=== PATIENT | male | born 1960 | race Hispanic/Latino ===

== ENCOUNTER 2017-06-04 18:21 | Inpatient (IN) | payer MEDICAID, OTHER ==
[2017-06-04] MEDS ORDERED: Sodium Chloride 0.9% 1,000 ML IV STA (18:42)
--- NOTE | 2017-06-04 18:55 | ED PDOC ---
HPI: Chest Pain Time Seen by Provider: 06/04/17 18:33 Chief Complaint (Nursing): Chest Pain Chief Complaint (Provider): Chest Pain History Per: Patient History/Exam Limitations: no limitations Onset/Duration Of Symptoms: Mins (prior to arrival) Current Symptoms Are (Timing): Still Present Additional Complaint(s): Bipin Neri is a 57 year old male with previous medical history of COPD, CVA, stomach ulcer, herniated disk and arthritis, who presents to the emergency department for an evaluation of left-sided chest pain associated with shakiness , lightheadedness, shortness of breath, nausea, vomiting, runny nose, loss of appetite and generalized weakness while at a [place] festival prior to arrival. Denied abdominal pain, diarrhea, headache, visual change, cough, congestion, head injury, numbness or tingling. No new food or drink. Drinks occ alcohol. PMD: Herrera Cvoington MD Past Medical History Reviewed: Historical Data, Nursing Documentation, Vital Signs Vital Signs: Last Vital Signs Temp 97.4 F L 06/04/17 18:33 Pulse 109 H 06/04/17 19:30 Resp 16 06/04/17 19:30 BP 150/102 H 06/04/17 19:30 Pulse Ox 94 L 06/04/17 19:30 - Medical History PMH: Back Problems, COPD, Depression, Emphysema, Fractures (L ankle), HTN, Hypercholesterolemia, Hyperlipidemia, Pneumonia (10 yrs ago), Chronic Pain - Family History Family History: States: Unknown Family Hx - Social History Current smoker - smoking cessation education provided: No Ex-Smoker (has not smoked in the last 12 months): Yes Alcohol: Occasional Drugs: Denies - Immunization History Hx Tetanus Toxoid Vaccination: Yes Hx Influenza Vaccination: Yes Hx Pneumococcal Vaccination: Yes - Home Medications Home Medications: Ambulatory Orders Medication Instructions Recorded Amitriptyline [Elavil] 25 mg PO HS 10/25/16 Aspirin [Dickson Aspirin] 81 mg PO DAILY 10/25/16 Cyclobenzaprine [Flexeril] 5 mg PO TID PRN 10/25/16 DULoxetine [Cymbalta] 60 mg PO DAILY 10/25/16 Famotidine [Pepcid] 20 mg PO DAILY 10/25/16 Gabapentin [Neurontin] 800 mg PO TID 10/25/16 Walker [Rolling Walker] 1 dev XX PRN PRN #1 dev 11/16/16 Fluticasone/Vilanterol [Breo 1 puff INH DAILY 06/04/17 Ellipta 100-25 Mcg INH] - Allergies Allergies/Adverse Reactions: Allergies Allergy/AdvReac Type Severity Reaction Status Date / Time oxycodone HCl [From Percocet] Allergy Verified 11/17/16 01:27 Review of Systems ROS Statement: Except As Marked, All Systems Reviewed And Found Negative Constitutional: Negative for: Other (head injury) Eyes: Negative for: Vision Change ENT: Negative for: Nose Congestion Cardiovascular: Positive for: Chest Pain Respiratory: Positive for: Shortness of Breath. Negative for: Cough Gastrointestinal: Positive for: Nausea, Vomiting, Other (loss of appetite). Negative for: Abdominal Pain, Diarrhea Neurological: Positive for: Weakness (generalized), Dizziness (lightheadedness) , Other (shakiness). Negative for: Numbness (or tingling), Incoordination, Headache Physical Exam - Reviewed Nursing Documentation Reviewed: Yes Vital Signs Reviewed: Yes - Physical Exam Appears: Positive for: Uncomfortable Head Exam: Positive for: ATRAUMATIC, NORMAL INSPECTION, NORMOCEPHALIC Skin: Positive for: Normal Color, Warm Eye Exam: Positive for: Normal appearance, EOMI, PERRL. Negative for: Nystagmus ENT: Positive for: Normal ENT Inspection. Negative for: Pharyngeal Erythema, Tonsillar Exudate Neck: Positive for: Normal, Painless ROM, Supple Cardiovascular/Chest: Positive for: Tachycardia, Other (left chest tenderness). Negative for: Regular Rate, Rhythm, Chest Non Tender Respiratory: Negative for: Normal Breath Sounds, Decreased Breath Sounds, Accessory Muscle Use, Crackles, Rales, Rhonchi, Wheezing, Respiratory Distress Gastrointestinal/Abdominal: Positive for: Bowel Sounds, Soft, Tenderness ( epigastric). Negative for: Normal Exam, Other (ecchymosis) Back: Positive for: Normal Inspection. Negative for: L CVA Tenderness, R CVA Tenderness Extremity: Positive for: Normal ROM. Negative for: Tenderness, Pedal Edema, Deformity Neurologic/Psych: Positive for: Alert, pharmacovigilance specialist II-XII (intact), Oriented (x3). Negative for: Motor/Sensory Deficits - Laboratory Results Result Diagrams: 06/04/17 19:30 06/04/17 20:20 Interpretation Of Abn Labs: elevated liver enzymes; 2.8 lactate - ECG ECG: Positive for: Interpreted By Me, Viewed By Me ECG Rhythm: Positive for: Sinus Tachycardia O2 Sat by Pulse Oximetry: 98 (RA) Pulse Ox Interpretation: Normal - Radiology X-Ray: Interpreted by Me X-Ray Interpretation: No Acute Disease - CT Scan/US US Other Rad Studies (CT/US): Radiology Report Reviewed Other Rad Interpretation: no acute - Progress ED Course And Treament: 2309: Dr. Covington paged multiple times with no response. Spoke with Dr. Cook who will admit and give further orders when pt. reaches floor. Stable. Chest pain free. AAOx3. Medical Decision Making Medical Decision Making: Initial Impression: Chest pain Initial Plan: * VBG * EKG * Alcohol serum * BNP * CMP * Drug screen, urine * Lipase * Troponin I * Urine dip * CBC * PTT * PT * CXR * Morphine 4mg IV * NS 1,000ml IV per 1,000mls/hr * Zofran 4mg IV * Accucheck Time: 1907 --EKG: sinus tachycardia at 113 BMP. --Per chart, patient has allergy to Oxycodone. Upon further questioning, patient stated that he gets "jittery" and has vomiting reaction but does not report rash, hives or trouble breathing. --Patient is willing to try Morphine for pain relief. Stated that he has had it in the past with no issues. Scribe Attestation: Documented by Namiat Sinha, acting as a scribe for Jim Gooden MD. Provider Scribe Attestation: All medical record entries made by the Scribe were at my direction and personally dictated by me. I have reviewed the chart and agree that the record accurately reflects my personal performance of the history, physical exam, medical decision making, and the department course for this patient. I have also personally directed, reviewed, and agree with the discharge instructions and disposition. Disposition - Clinical Impression Clinical Impression: Chest pain, Vomiting - Patient ED Disposition Is Patient to be Admitted: Yes Counseled Patient/Family Regarding: Studies Performed, Diagnosis - Disposition Disposition Time: 22:13 Condition: FAIR - Pt Status Changed To: Hospital Disposition Of: Inpatient - Admit Certification Admit to Inpatient:: After my assessment, the patient will require hospitalization for at least two midnights. This is because of the severity of symptoms shown, intensity of services needed, and/or the medical risk in this patient being treated as an outpatient. - POA Present On Arrival: None
[2017-06-04 19:34] LABS: ALB/GLOB RATIO 1.4 (1.0-2.1); ALCOHOL SERUM < 10 mg/dl (0-10); ALKALINE PHOSPHATASE 80 U/L (38-126); ALT/SGPT 122 U/L (21-72); AST/SGOT 158 U/L (17-59); BILIRUBIN,TOTAL 1.9 mg/dl (0.2-1.3); BLOOD UREA NITROGEN 11 mg/dl (9-20); CALCIUM 9.9 mg/dL (8.4-10.2); CARBON DIOXIDE 22 mmol/L (22-30); CHLORIDE 99 mmol/L (98-107); GFR AFRICAN-AMERICAN > 60; GLUCOSE,RANDOM 99 mg/dL (75-110); LIPASE 208 U/L (23-300); SODIUM 134 mmol/l (132-148); TOTAL PROTEIN 8.3 G/DL (6.3-8.2)
[2017-06-04 19:42] LABS: POTASSIUM 5.6 MMOL/L (3.6-5.0)
[2017-06-04 19:53] LABS: PARTIAL THROMBOPLASTIN TIME 28.8 Seconds (25.6-37.1)
[2017-06-04 20:08] LABS: BASO # 0.1 K/uL (0.0-0.2); BASO % 1.5 % (0.0-2.0); EOS # 0.2 K/uL (0.0-0.7); EOS % 1.6 % (0.0-4.0); HEMATOCRIT 45.2 % (35.0-51.0); LYMPH # 1.6 K/uL (1.0-4.3); LYMPH % 15.9 % (20.0-40.0); MEAN CELL VOLUME 99.7 fl (80.0-94.0); MEAN CORPUSCULAR HEMOGLOBIN 35.6 pg (27.0-31.0); MEAN CORPUSCULAR HGB CONC 35.7 g/dL (33.0-37.0); MEAN PLATELET VOLUME 9.7 fl (7.2-11.7); MONO # 0.5 K/uL (0.0-0.8); MONO % 5.4 % (0.0-10.0); NEUT # 7.7 K/uL (1.8-7.0); NEUT % 75.6 % (50.0-75.0); NRBC % 0.2 % (0.0-0.0); WHITE BLOOD COUNT 10.1 K/uL (4.8-10.8)
--- NOTE | 2017-06-04 22:27 | US ---
EXAM: US Abdomen Limited, Right Upper Quadrant EXAM DATE/TIME: 06/04/2017 7:52 PM CLINICAL HISTORY: 57 years old, male; Pain; Abdominal pain; Generalized; Additional info: Eval gb; Epigastric pain TECHNIQUE: Real-time ultrasound of the right upper quadrant with image documentation. COMPARISON: No relevant prior studies available. FINDINGS: There is a negative sonographic Hills's sign per remote sensing technologist. No gallstones. No pericholecystic fluid. The gallbladder wall does not appear thickened although there are no actual measurements submitted. The common bile duct measures 4 mm which is within normal limits. The liver is increased in echogenicity consistent with fatty infiltration. The pancreas is normal. No right hydronephrosis. The right kidney measures 11 cm in length. IMPRESSION: No acute findings.
[2017-06-04 22:34] LABS: VENOUS BLOOD GAS BASE EXCESS 1.3 mmol/L (0.0-2.0); VENOUS BLOOD GAS PCO2 40 mmHg (40-60); VENOUS BLOOD PH 7.42 (7.32-7.43)
[2017-06-04 22:42] LABS: VENOUS BLOOD GAS BASE EXCESS 1.3 mmol/L (0.0-2.0); VENOUS BLOOD GAS PCO2 40 mmHg (40-60); VENOUS BLOOD PH 7.42 (7.32-7.43)
[2017-06-05] MEDS: Dextrose 5%/0.9% NS 1,000 ML IV SCH ×2 (03:40→23:33)
[2017-06-05 07:40] LABS: HEMATOCRIT 42.8 % (35.0-51.0); MEAN CORPUSCULAR HEMOGLOBIN 34.6 pg (27.0-31.0); MEAN CORPUSCULAR HGB CONC 34.3 g/dL (33.0-37.0); RED CELL DISTRIBUTION WIDTH 13.8 % (11.5-14.5); WHITE BLOOD COUNT 5.8 K/uL (4.8-10.8)
[2017-06-05 08:13] LABS: ALB/GLOB RATIO 1.4 (1.0-2.1); ALKALINE PHOSPHATASE 60 U/L (38-126); ALT/SGPT 100 U/L (21-72); AST/SGOT 101 U/L (17-59); BILIRUBIN,TOTAL 1.3 mg/dl (0.2-1.3); BLOOD UREA NITROGEN 8 mg/dl (9-20); CALCIUM 8.7 mg/dL (8.4-10.2); CARBON DIOXIDE 29 mmol/L (22-30); CHLORIDE 99 mmol/L (98-107); GFR AFRICAN-AMERICAN > 60; GLUCOSE,RANDOM 134 mg/dL (75-110); POTASSIUM 3.3 MMOL/L (3.6-5.0); SODIUM 136 mmol/l (132-148); TOTAL PROTEIN 6.6 G/DL (6.3-8.2)
[2017-06-05] MEDS: Fluticasone-Salmeterol 100-50mcg Diskus IH SCH ×2 (08:31→21:22)
[2017-06-05] MEDS: Pantoprazole 40 mg EC Tab PO SCH (08:33)
[2017-06-05 08:36] LABS: THYROID STIMULATING HORMONE 3.26 mIU/ML (0.46-4.68)
[2017-06-05] MEDS ORDERED: Patient's Own Med (Gabapentin [Neurontin] 800 MG) PO SCH (09:00)
[2017-06-05] MEDS ORDERED: Patient's Own Med (Fluticasone/Vilanterol [Breo Ellipta 100-25 Mcg Inh] 1 PUFF) INH SCH (09:00)
--- NOTE | 2017-06-05 09:22 | RAD ---
HISTORY: Dyspnea. Portable study 19:18. COMPARISON: 07/02/2011 FINDINGS: LUNGS: No active pulmonary disease. PLEURA: Unremarkable CARDIOVASCULAR: No radiographic findings to suggest acute or significant cardiovascular disease. OSSEOUS STRUCTURES: No significant abnormalities. VISUALIZED UPPER ABDOMEN: Normal. OTHER FINDINGS: None. IMPRESSION: No active disease. No significant interval change compared to the prior examination(s).
--- NOTE | 2017-06-05 21:43 | CP.PCM.HP ---
History of Present Illness - History of Present Illness History of Present Illness: A 57 yr old male with hx of COPD, Chronic smoker and back pain due to disc disease ,drinks alchol daily came to ER as he felt chest pain for few sec and getting shakY as per him he had one drink on day prior to admission.notes he does not do binge drinking. found to be with elevated LFTS , LOW PLATELTS. Present on Admission - Present on Admission Any Indicators Present on Admission: No Review of Systems - Hematologic/Lymphatic Additional comments: - Constitutional Constitutional: Fatigue, no Lethargy, no Weight Loss. absent: Chills, Fever, Headache, Night Sweats - EENT Nose/Mouth/Throat: absent: Sore Throat, Facial Pain - Cardiovascular Cardiovascular: absent: Chest Pain, Dyspnea, Edema, Orthopnea, Rapid Heart Rate - Respiratory Respiratory: absent: Wheezing, Chest Congestion, Excessive Mucous Production - Gastrointestinal Gastrointestinal: Nausea. absent: Belching, Bloating, Constipation, Diarrhea, Dyspepsia - Genitourinary Genitourinary: Hematuria. absent: Flank Pain, Urinary Frequency - Musculoskeletal Musculoskeletal: Arthralgias, Limited Range of Motion. c\o Back Pain - Hematologic/Lymphatic Hematologic: absent: Easy Bleeding, Lymphadenopathy Past Patient History - Infectious Disease Hx of Infectious Diseases: None - Past Medical History & Family History Past Medical History?: Yes - Past Social History Smoking Status: Light Smoker < 10 Cigarettes Daily - CARDIAC Hx Cardiac Disorders: Yes Hx Hypercholesterolemia: Yes Hx Hypertension: Yes - PULMONARY Hx Chronic Obstructive Pulmonary Disease (COPD): Yes Hx Emphysema: Yes Hx Pneumonia: Yes (10 yrs ago) - NEUROLOGICAL Hx Neurological Disorder: Yes HX Cerebrovascular Accident: Yes (with TPA 12/2015) - HEENT Hx HEENT Problems: No - RENAL Hx Chronic Kidney Disease: No - ENDOCRINE/METABOLIC Hx Endocrine Disorders: No - HEMATOLOGICAL/ONCOLOGICAL Hx Blood Disorders: No - INTEGUMENTARY Hx Dermatological Problems: No - MUSCULOSKELETAL/RHEUMATOLOGICAL Hx Falls: Yes - GASTROINTESTINAL Hx Gastrointestinal Disorders: Yes Hx Gastroesophageal Reflux: Yes - GENITOURINARY/GYNECOLOGICAL Hx Genitourinary Disorders: No - PSYCHIATRIC Hx Depression: Yes Hx Substance Use: No - SURGICAL HISTORY Hx Surgeries: Yes Hx Open Reduction Internal Fixation: Yes (left ankle) Other/Comment: cyst from under left ear and neck,BX OF VOCAL CORD - ANESTHESIA Hx Anesthesia: Yes Hx Anesthesia Reactions: No Hx Malignant Hyperthermia: No Meds Home Medications: Home Medication List Medication Instructions Recorded Confirmed Type Albuterol/Ipratropium [Duoneb 3 3 ml INH RTID #60 06/08/17 Rx mg/0.5 mg (3 ml) UD] Azithromycin [Zithromax] 500 mg PO DAILY #5 tablet 06/08/17 Rx Fluticasone/Salmeterol 100/50 1 puff IH Q12 #1 puff 06/08/17 Rx [Advair Diskus 100/50] Folic Acid 1 mg PO DAILY #30 tab 06/08/17 Rx Gabapentin [Neurontin] 800 mg PO TID #60 cap 06/08/17 Rx Methylprednisolone [Medrol Dose 4 mg PO DAILY #21 mg 06/08/17 Rx Pack (21 tabs)] Metoprolol Tartrate [Lopressor] 25 mg PO BID #60 tab 06/08/17 Rx Pantoprazole [Protonix EC Tab] 40 mg PO DAILY #30 ect 06/08/17 Rx Thiamine [Vitamin B1 Tab] 100 mg PO DAILY #30 tab 06/08/17 Rx Allergies/Adverse Reactions: Allergies Allergy/AdvReac Type Severity Reaction Status Date / Time oxycodone HCl [From Percocet] Allergy Verified 11/17/16 01:27 Physical Exam - Additional Findings Additional findings: - Constitutional Appears: No Acute Distress - Head Exam Head Exam: ATRAUMATIC, NORMAL INSPECTION - Eye Exam Eye Exam: EOMI, Normal appearance, PERRL - ENT Exam ENT Exam: Normal Exam - Neck Exam Neck exam: Positive for: Normal Inspection. Negative for: Thyromegaly - Respiratory Exam Respiratory Exam: Clear to Auscultation Bilateral, NORMAL BREATHING PATTERN - Cardiovascular Exam Cardiovascular Exam: REGULAR RHYTHM, +S1, +S2, Systolic Murmur - GI/Abdominal Exam GI & Abdominal Exam: Normal Bowel Sounds, Soft. absent: Distended, Organomegaly , TenderneSS - Extremities Exam Extremities exam: Positive for: full ROM, pedal pulses present, B\L hand tremmors - Back Exam Back exam: NORMAL INSPECTION. absent: paraspinal tenderness - Neurological Exam Neurological exam: Alert, CN II-XII Intact, Normal Gait, Oriented x3 - Psychiatric Exam Psychiatric exam: Anxious - Skin Skin Exam: Intact, Normal Color Results - Vital Signs Recent Vital Signs: Last Vital Signs Temp 97.9 F 06/05/17 19:34 Pulse 77 06/05/17 19:34 Resp 20 06/05/17 19:34 BP 152/96 H 06/05/17 19:34 Pulse Ox 96 06/05/17 19:34 - Labs Result Diagrams: 06/06/17 06:00 06/08/17 05:40 Labs: Laboratory Results - last 24 hr 06/05/17 06/05/17 06/05/17 06:30 08:00 12:30 WBC 5.8 RBC 4.24 L Hgb 14.7 Hct 42.8 MCV 101.0 H MCH 34.6 H MCHC 34.3 RDW 13.8 Plt Count 96 L D Sodium 136 Potassium 3.3 L Chloride 99 Carbon Dioxide 29 Anion Gap 11 BUN 8 L Creatinine 0.7 L Est GFR ( Amer) > 60 Est GFR (Non-Af Amer) > 60 Random Glucose 134 H Calcium 8.7 Total Bilirubin 1.3 AST 101 H D ALT 100 H Alkaline Phosphatase 60 Troponin I < 0.0120 < 0.0120 Total Protein 6.6 Albumin 3.8 Globulin 2.8 Albumin/Globulin Ratio 1.4 TSH 3rd Generation 3.26 - EKG Data EKG Interpreted by: Myself EKG shows normal: Sinus rhythm Rate: Normal - Imaging and Cardiology Chest x-ray Status: Report reviewed by me US - abdomen Status: Report reviewed by me Assessment & Plan (1) Chest pain Status: Acute (2) Alcohol withdrawal Status: Acute (3) Hepatitis Status: Acute (4) Hypokalemia Status: Acute (5) COPD (chronic obstructive pulmonary disease) Status: Acute - Assessment and Plan (Free Text) Plan: trops and EKG Q 8HR R\O ACS MONITOR LFTS Likley alcohol induced ivf librium ativan PRN MONITOR VITALS. continue inhalers home meds resumed. Decision To Admit - Pt Status Changed To: Hospital Disposition Of: Inpatient - Admit Certification Admit to Inpatient:: After my assessment, the patient will require hospitalization for at least two midnights. This is because of the severity of symptoms shown, intensity of services needed, and/or the medical risk in this patient being treated as an outpatient. - . Bed Request Type: Telemetry Admitting Physician: Monika Cook
[2017-06-05] MEDS: Sodium Chloride 0.9% 1,000 ML IV SCH (23:37)
[2017-06-06 06:30] LABS: BASO # 0.1 K/uL (0.0-0.2); BASO % 1.3 % (0.0-2.0); EOS # 0.4 K/uL (0.0-0.7); EOS % 6.4 % (0.0-4.0); HEMATOCRIT 42.2 % (35.0-51.0); LYMPH # 1.8 K/uL (1.0-4.3); LYMPH % 27.1 % (20.0-40.0); MEAN CELL VOLUME 102.8 fl (80.0-94.0); MEAN CORPUSCULAR HEMOGLOBIN 34.9 pg (27.0-31.0); MEAN PLATELET VOLUME 9.7 fl (7.2-11.7); MONO # 0.5 K/uL (0.0-0.8); MONO % 7.8 % (0.0-10.0); NEUT # 3.8 K/uL (1.8-7.0); NEUT % 57.4 % (50.0-75.0); RED CELL DISTRIBUTION WIDTH 13.6 % (11.5-14.5); WHITE BLOOD COUNT 6.6 K/uL (4.8-10.8)
[2017-06-06 06:42] LABS: ALB/GLOB RATIO 1.3 (1.0-2.1); ALKALINE PHOSPHATASE 62 U/L (38-126); ALT/SGPT 100 U/L (21-72); AST/SGOT 108 U/L (17-59); BILIRUBIN,TOTAL 0.5 mg/dl (0.2-1.3); BLOOD UREA NITROGEN 10 mg/dl (9-20); CARBON DIOXIDE 28 mmol/L (22-30); CHLORIDE 101 mmol/L (98-107); GFR AFRICAN-AMERICAN > 60; GLUCOSE,RANDOM 146 mg/dL (75-110); POTASSIUM 4.2 MMOL/L (3.6-5.0); SODIUM 138 mmol/l (132-148); TOTAL PROTEIN 6.4 G/DL (6.3-8.2)
--- NOTE | 2017-06-06 08:00 | CARD ---
APPROVED REPORT EKG Measurement Heart [id number] <Conclusion> Normal sinus rhythm Cannot rule out Anterior infarct, age undetermined Abnormal ECG
[2017-06-06] MEDS: Fluticasone-Salmeterol 100-50mcg Diskus IH SCH ×2 (09:11→21:58)
[2017-06-06] MEDS: Potassium Chloride 20 mEq ER Tab PO SCH (09:12)
[2017-06-06] MEDS: Pantoprazole 40 mg EC Tab PO SCH (09:15)
[2017-06-06 12:22] VITALS: BMI 22.4
[2017-06-06] MEDS: Sodium Chloride 0.9% 1,000 ML IV SCH (12:25)
[2017-06-06] MEDS ORDERED: Iohexol 240 (50 ml) PO ONE (13:00)
[2017-06-06] MEDS ORDERED: Iohexol 300 100 ML IJ ONE (15:23)
[2017-06-06] MEDS ORDERED: Sodium Chloride 0.9% 50 ML IV ONE (15:24)
--- NOTE | 2017-06-06 16:28 | CT ---
PROCEDURE: CT Abdomen and Pelvis with contrast HISTORY: abd pain; diarrhea COMPARISON: None. TECHNIQUE: Contrast dose: 508 Radiation dose: Total exam DLP = 90 cc of Omnipaque 300 mGy-cm. This CT exam was performed using one or more of the following dose reduction techniques: Automated exposure control, adjustment of the mA and/or kV according to patient size, and/or use of iterative reconstruction technique. FINDINGS: LOWER THORAX: Unremarkable. LIVER: Fatty liver. No gross lesion or ductal dilatation. GALLBLADDER AND BILE DUCTS: Unremarkable. PANCREAS: Unremarkable. No gross lesion or ductal dilatation. SPLEEN: Unremarkable. ADRENALS: Unremarkable. No mass. KIDNEYS AND URETERS: There is bilateral perinephric fat infiltration.. No hydronephrosis. No solid mass. VASCULATURE: Unremarkable. No aortic aneurysm. BOWEL: There is extensive descending and sigmoid colon diverticulosis with compensatory muscular hypertrophy.. No obstruction. No gross mural thickening. APPENDIX: Normal appendix. PERITONEUM: Unremarkable. No free fluid. No free air. LYMPH NODES: Unremarkable. No enlarged lymph nodes. BLADDER: Unremarkable. REPRODUCTIVE: Unremarkable. BONES: No acute fracture. OTHER FINDINGS: None. IMPRESSION: Extensive colonic diverticulosis. Recommend correlation with colonoscopy if clinically indicated. Fatty infiltration of the liver.
--- NOTE | 2017-06-06 21:11 | CP.PCM.PN ---
Subjective - Date & Time of Evaluation Date of Evaluation: 06/05/17 Time of Evaluation: 19:00 - Subjective Subjective: episodes of back pain as he has disc disease labs noted with elevated LFTS noted wheezing last pm, felt better with nebs.notes he is not on nebuliser at home hep b\c negative Objective - Vital Signs/Intake and Output Vital Signs (last 24 hours): Temp Pulse Resp BP Pulse Ox 97.8 F 79 20 127/83 99 06/06/17 18:47 06/06/17 18:47 06/06/17 18:47 06/06/17 18:47 06/06/17 18:47 Intake and Output: 06/06/17 06/07/17 18:59 06:59 Intake Total 1400 Balance 1400 - Medications Medications: Current Medications Amitriptyline HCl (Elavil) 25 mg PO HS [facility] Last Admin: 06/05/17 21:22 Dose: 25 mg Aspirin (Aspirin Chewable) 81 mg PO DAILY [facility] Last Admin: 06/06/17 09:11 Dose: 81 mg Chlordiazepoxide (Librium) 25 mg PO BID [facility] Last Admin: 06/06/17 16:42 Dose: 25 mg Folic Acid (Folic Acid) 1 mg PO DAILY [facility] Last Admin: 06/06/17 09:11 Dose: 1 mg Gabapentin (Neurontin) 800 mg PO TID [facility] Last Admin: 06/06/17 16:39 Dose: 800 mg Lorazepam (Ativan) 2 mg IVP Q8 PRN PRN Reason: Agitation Last Admin: 06/05/17 03:41 Dose: 2 mg Metoprolol Tartrate (Lopressor) 25 mg PO BID [facility] Last Admin: 06/06/17 16:38 Dose: 25 mg Ondansetron HCl (Zofran Inj) 4 mg IVP Q8 PRN PRN Reason: Nausea/Vomiting Pantoprazole Sodium (Protonix Ec Tab) 40 mg PO DAILY [facility] Last Admin: 06/06/17 09:15 Dose: 40 mg Potassium Chloride (K-Dur 20 Meq Er Tab) 20 meq PO DAILY [facility] Last Admin: 06/06/17 09:12 Dose: 20 meq Fluticasone/Salmeterol (Advair Diskus 100/50) 1 puff IH Q12 [facility] Last Admin: 06/06/17 09:11 Dose: 1 inhaler Thiamine HCl (Vitamin B1 Tab) 100 mg PO DAILY [facility] Last Admin: 06/06/17 09:15 Dose: 100 mg - Labs Labs: 06/06/17 06:00 06/06/17 06:00 PT 11.7 Seconds (9.8-13.1) 06/04/17 19:14 INR 1.1 (0.9-1.2) 06/04/17 19:14 APTT 28.8 Seconds (25.6-37.1) 06/04/17 19:14 - Additional Findings Additional findings: Additional Findings Additional findings: - Constitutional Appears: No Acute Distress - Head Exam Head Exam: ATRAUMATIC, NORMAL INSPECTION - Eye Exam Eye Exam: EOMI, Normal appearance, PERRL - ENT Exam ENT Exam: Normal Exam - Neck Exam Neck exam: Positive for: Normal Inspection. Negative for: Thyromegaly - Respiratory Exam Respiratory Exam: b\l mild decrased breath sounds. Bilateral, NORMAL BREATHING PATTERN - Cardiovascular Exam Cardiovascular Exam: REGULAR RHYTHM, +S1, +S2, Systolic Murmur - GI/Abdominal Exam GI & Abdominal Exam: Normal Bowel Sounds, Soft. absent: Distended, Organomegaly , TenderneSS - Extremities Exam Extremities exam: Positive for: full ROM, pedal pulses present, B\L hand tremmors - Back Exam Back exam: NORMAL INSPECTION. absent: paraspinal tenderness - Neurological Exam Neurological exam: Alert, CN II-XII Intact, Normal Gait, Oriented x3 - Psychiatric Exam Psychiatric exam: Anxious - Skin Skin Exam: Intact, Normal Color Assessment and Plan (1) COPD exacerbation Status: Acute (2) Alcohol withdrawal Status: Acute (3) Chest pain Status: Acute (4) Hepatitis Status: Acute (5) Hypokalemia Status: Acute - Assessment and Plan (Free Text) Plan: nebs PRN echo so far work up negative iv steroids if continue to wheeze monitor LFTS
[2017-06-07 07:34] LABS: ALB/GLOB RATIO 1.4 (1.0-2.1); ALKALINE PHOSPHATASE 56 U/L (38-126); ALT/SGPT 123 U/L (21-72); AST/SGOT 113 U/L (17-59); BILIRUBIN,TOTAL 0.5 mg/dl (0.2-1.3); BLOOD UREA NITROGEN 9 mg/dl (9-20); CALCIUM 9.4 mg/dL (8.4-10.2); CARBON DIOXIDE 28 mmol/L (22-30); CHLORIDE 99 mmol/L (98-107); GFR AFRICAN-AMERICAN > 60; GLUCOSE,RANDOM 94 mg/dL (75-110); POTASSIUM 3.7 MMOL/L (3.6-5.0); SODIUM 137 mmol/l (132-148); TOTAL PROTEIN 6.7 G/DL (6.3-8.2)
--- NOTE | 2017-06-07 08:04 | CARD ---
APPROVED REPORT EXAM: Two-dimensional and M-mode echocardiogram with Doppler and color Doppler. Other Information Quality : GoodRhythm : NSR INDICATION Chest Pain 2D DIMENSIONS IVSd1.01 (0.7-1.1cm)LVDd3.06 (3.9-5.9cm) LVOT Diameter2.51 (1.8-2.4cm)PWd1.13 (0.7-1.1cm) IVSs1.29 (0.8-1.2cm)LVDs3.02 (2.5-4.0cm) FS (%) 1.2 %PWs1.06 (0.8-1.2cm) M-Mode DIMENSIONS Left Atrium (MM)2.34 (2.5-4.0cm)IVSd0.85 (0.7-1.1cm) Aortic Root4.00 (2.2-3.7cm)LVDd5.13 (4.0-5.6cm) Aortic Cusp Exc.1.85 (1.5-2.0cm)PWd0.91 (0.7-1.1cm) IVSs1.60 cmFS (%) 46 % LVDs2.76 (2.0-3.8cm)PWs1.41 cm Mitral Valve MV E Tjumpwwg06.4cm/sMV DECEL [id number] A Dqnmeyjt37.2cm/s MV CAR18icN/A ratio0.7MVA (PHT)3.66cm2 TDI Lateral E' Peak V6.44cm/sMedial E' Peak V6.11cm/sE/Lateral E'7.7 E/Medial E'8.1 Pulmonary Valve PV Peak Zwcmvcrm54.9cm/s LEFT VENTRICLE The left ventricle is normal size. There is normal left ventricular wall thickness. Left ventricle systolic function is normal. The Ejection Fraction is 60-65%. There is normal LV segmental wall motion. Transmitral Doppler flow pattern is Grade I-abnormal relaxation pattern. RIGHT VENTRICLE The right ventricle is normal size. There is normal right ventricular wall thickness. The right ventricular systolic function is normal. ATRIA The left atrium size is normal. The right atrium size is normal. AORTIC VALVE The aortic valve is normal in structure. There is mild aortic regurgitation. There is no aortic valvular stenosis. MITRAL VALVE The mitral valve is normal in structure and function. There is no evidence of mitral valve prolapse. There is no mitral valve stenosis. There is no mitral valve regurgitation noted. TRICUSPID VALVE The tricuspid valve is normal in structure and function. There is no tricuspid valve regurgitation noted. PULMONIC VALVE The pulmonary valve is normal in structure and function. There is no pulmonic valvular regurgitation. GREAT VESSELS The aortic root is mildly enlarged. The IVC is normal in size and collapses >50% with inspiration. PERICARDIAL EFFUSION The pericardium appears normal. <Conclusion> The left ventricle is normal size. There is normal left ventricular wall thickness. There is normal LV segmental wall motion. Left ventricle systolic function is normal. The Ejection Fraction is 60-65%. Transmitral Doppler flow pattern is Grade I-abnormal relaxation pattern. The aortic root is mildly enlarged.
[2017-06-07] MEDS: Potassium Chloride 20 mEq ER Tab PO SCH (09:20)
[2017-06-07] MEDS: Fluticasone-Salmeterol 100-50mcg Diskus IH SCH ×2 (09:20→21:29)
[2017-06-07] MEDS: Pantoprazole 40 mg EC Tab PO SCH (09:21)
[2017-06-07] MEDS ORDERED: methylPREDNISolone 60 MG in Sodium Chloride 0.9% 50 ML IV STA (20:40)
[2017-06-07] MEDS ORDERED: Albuterol-Ipratrop 3 mg / 0.5 (3 ml) UD INH STA (20:40)
--- NOTE | 2017-06-07 21:14 | CP.PCM.PN ---
Subjective - Date & Time of Evaluation Date of Evaluation: 06/07/17 Time of Evaluation: 14:00 - Subjective Subjective: few runs of diarrhea yesterday feeling better noted to be anxious and repetitive BP spiking up and down stool work pending notes he feels dizzy when walking around. still c\io chest tightness despite work up being negative ECHO-WNL Objective - Vital Signs/Intake and Output Vital Signs (last 24 hours): Temp Pulse Resp BP Pulse Ox 97.9 F 73 20 124/77 96 06/07/17 19:29 06/07/17 19:29 06/07/17 19:29 06/07/17 19:29 06/07/17 19:29 Intake and Output: 06/07/17 06/08/17 18:59 06:59 Intake Total 1200 Balance 1200 - Medications Medications: Current Medications Albuterol/Ipratropium (Duoneb 3 Mg/0.5 Mg (3 Ml) Ud) 3 ml INH RTID [facility] Amitriptyline HCl (Elavil) 25 mg PO HS [facility] Last Admin: 06/06/17 21:58 Dose: 25 mg Aspirin (Aspirin Chewable) 81 mg PO DAILY [facility] Last Admin: 06/07/17 09:20 Dose: 81 mg Chlordiazepoxide (Librium) 25 mg PO DAILY [facility] Folic Acid (Folic Acid) 1 mg PO DAILY [facility] Last Admin: 06/07/17 09:20 Dose: 1 mg Gabapentin (Neurontin) 800 mg PO TID [facility] Last Admin: 06/07/17 16:02 Dose: 800 mg Methylprednisolone 60 mg/ (Sodium Chloride) 50 mls @ 100 mls/hr IV DAILY [facility] Lorazepam (Ativan) 2 mg IVP Q8 PRN PRN Reason: Agitation Last Admin: 06/05/17 03:41 Dose: 2 mg Metoprolol Tartrate (Lopressor) 25 mg PO BID [facility] Last Admin: 06/07/17 16:01 Dose: 25 mg Nicotine (Nicoderm Cq) 1 patch TD DAILY [facility] Last Admin: 06/07/17 10:45 Dose: 1 patch Ondansetron HCl (Zofran Inj) 4 mg IVP Q8 PRN PRN Reason: Nausea/Vomiting Pantoprazole Sodium (Protonix Ec Tab) 40 mg PO DAILY [facility] Last Admin: 06/07/17 09:21 Dose: 40 mg Potassium Chloride (K-Dur 20 Meq Er Tab) 20 meq PO DAILY [facility] Last Admin: 06/07/17 09:20 Dose: 20 meq Fluticasone/Salmeterol (Advair Diskus 100/50) 1 puff IH Q12 [facility] Last Admin: 06/07/17 09:20 Dose: 1 puff Thiamine HCl (Vitamin B1 Tab) 100 mg PO DAILY [facility] Last Admin: 06/07/17 09:21 Dose: 100 mg - Labs Labs: 06/06/17 06:00 06/07/17 05:45 PT 11.7 Seconds (9.8-13.1) 06/04/17 19:14 INR 1.1 (0.9-1.2) 06/04/17 19:14 APTT 28.8 Seconds (25.6-37.1) 06/04/17 19:14 - Additional Findings Additional findings: Additional Findings Additional findings: - Constitutional Appears: No Acute Distress - Head Exam Head Exam: ATRAUMATIC, NORMAL INSPECTION - Eye Exam Eye Exam: EOMI, Normal appearance, PERRL - ENT Exam ENT Exam: Normal Exam - Neck Exam Neck exam: Positive for: Normal Inspection. Negative for: Thyromegaly - Respiratory Exam Respiratory Exam: Clear to Auscultation Bilateral, NORMAL BREATHING PATTERN - Cardiovascular Exam Cardiovascular Exam: REGULAR RHYTHM, +S1, +S2, Systolic Murmur - GI/Abdominal Exam GI & Abdominal Exam: Normal Bowel Sounds, Soft. absent: Distended, Organomegaly , TenderneSS - Extremities Exam Extremities exam: Positive for: full ROM, pedal pulses present, no B\L hand tremmors - Back Exam Back exam: NORMAL INSPECTION. absent: paraspinal tenderness - Neurological Exam Neurological exam: Alert, CN II-XII Intact, Normal Gait, Oriented x3 - Psychiatric Exam Psychiatric exam: Anxious - Skin Skin Exam: Intact, Normal Color Assessment and Plan (1) Chest pain Status: Acute (2) Alcohol withdrawal Status: Acute (3) Hepatitis Status: Acute (4) Hypokalemia Status: Acute (5) COPD (chronic obstructive pulmonary disease) Status: Acute (6) Essential (primary) hypertension Status: Acute - Assessment and Plan (Free Text) Plan: INCrease BP meds bid likley withdrawl related girl friend at bed side-discussed in detail iv solumedrol o2 NC 2 lit discuss about using nebs cardiology called- due to high risk
[2017-06-08 07:30] LABS: ALB/GLOB RATIO 1.4 (1.0-2.1); ALKALINE PHOSPHATASE 55 U/L (38-126); ALT/SGPT 136 U/L (21-72); AST/SGOT 115 U/L (17-59); BILIRUBIN,TOTAL 0.5 mg/dl (0.2-1.3); BLOOD UREA NITROGEN 9 mg/dl (9-20); CALCIUM 9.9 mg/dL (8.4-10.2); CARBON DIOXIDE 22 mmol/L (22-30); CHLORIDE 100 mmol/L (98-107); CHOLESTEROL 126 mg/dL (0-199); GFR AFRICAN-AMERICAN > 60; GLUCOSE,RANDOM 307 mg/dL (75-110); POTASSIUM 3.4 MMOL/L (3.6-5.0); SODIUM 135 mmol/l (132-148)
[2017-06-08] MEDS: Albuterol-Ipratrop 3 mg / 0.5 (3 ml) UD INH SCH ×2 (07:49→16:18)
--- NOTE | 2017-06-08 08:03 | CP.PCM.CON ---
History of Present Illness - History of Present Illness History of Present Illness: Psychiatry consult called for evaluation of depression HPI:57 year old male with previous medical history of COPD, CVA, stomach ulcer, herniated disk and arthritis, who presents to the emergency department for an evaluation of left-sided chest pain associated with shakiness, lightheadedness, shortness of breath, nausea, vomiting, runny nose, loss of appetite and generalized weakness while at a [place] festival prior to arrival. Denied abdominal pain, diarrhea, headache, visual change, cough, congestion, head injury, numbness or tingling. No new food or drink. Drinks ETOH occasionally. Patient reports that his mood has been stable. He has a history of depression but has been compliant with medications and reports that his mood is stable. No anxiety. No hallucinations/delusions/paranoia. No other psychiatric complaints. PMD: Herrera Covington MD PPHx: H/o depression. No h/o suicide attempts. Current outpatient tx w/ Dr. Emilee Samuels and Dr. Ordoñez, next apt 06/16/17. 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 -Continue outpatient treatment, no acute inpatient admission indicated -Continue Elavil 25 mg PO HS -Patient denies current ETOH abuse or withdrawal symptoms Past Patient History - Infectious Disease Hx of Infectious Diseases: None - Past Medical History & Family History Past Medical History?: Yes - Past Social History Smoking Status: Light Smoker < 10 Cigarettes Daily - CARDIAC Hx Cardiac Disorders: Yes Hx Hypercholesterolemia: Yes Hx Hypertension: Yes - PULMONARY Hx Chronic Obstructive Pulmonary Disease (COPD): Yes Hx Emphysema: Yes Hx Pneumonia: Yes (10 yrs ago) - NEUROLOGICAL Hx Neurological Disorder: Yes HX Cerebrovascular Accident: Yes (with TPA 12/2015) - HEENT Hx HEENT Problems: No - RENAL Hx Chronic Kidney Disease: No - ENDOCRINE/METABOLIC Hx Endocrine Disorders: No - HEMATOLOGICAL/ONCOLOGICAL Hx Blood Disorders: No - INTEGUMENTARY Hx Dermatological Problems: No - MUSCULOSKELETAL/RHEUMATOLOGICAL Hx Falls: Yes - GASTROINTESTINAL Hx Gastrointestinal Disorders: Yes Hx Gastroesophageal Reflux: Yes - GENITOURINARY/GYNECOLOGICAL Hx Genitourinary Disorders: No - PSYCHIATRIC Hx Depression: Yes Hx Substance Use: No - SURGICAL HISTORY Hx Surgeries: Yes Hx Open Reduction Internal Fixation: Yes (left ankle) Other/Comment: cyst from under left ear and neck,BX OF VOCAL CORD - ANESTHESIA Hx Anesthesia: Yes Hx Anesthesia Reactions: No Hx Malignant Hyperthermia: No Meds Allergies/Adverse Reactions: Allergies Allergy/AdvReac Type Severity Reaction Status Date / Time oxycodone HCl [From Percocet] Allergy Verified 11/17/16 01:27 - Medications Medications: Current Medications Albuterol/Ipratropium (Duoneb 3 Mg/0.5 Mg (3 Ml) Ud) 3 ml INH RTID [facility] Last Admin: 06/08/17 07:49 Dose: 3 ml Amitriptyline HCl (Elavil) 25 mg PO HS [facility] Last Admin: 06/07/17 21:27 Dose: 25 mg Aspirin (Aspirin Chewable) 81 mg PO DAILY [facility] Last Admin: 06/07/17 09:20 Dose: 81 mg Chlordiazepoxide (Librium) 25 mg PO DAILY [facility] Folic Acid (Folic Acid) 1 mg PO DAILY [facility] Last Admin: 06/07/17 09:20 Dose: 1 mg Gabapentin (Neurontin) 800 mg PO TID [facility] Last Admin: 06/07/17 16:02 Dose: 800 mg Methylprednisolone 60 mg/ (Sodium Chloride) 50 mls @ 100 mls/hr IV DAILY [facility] Lorazepam (Ativan) 2 mg IVP Q8 PRN PRN Reason: Agitation Last Admin: 06/07/17 22:41 Dose: 2 mg Metoprolol Tartrate (Lopressor) 25 mg PO BID [facility] Last Admin: 06/07/17 16:01 Dose: 25 mg Nicotine (Nicoderm Cq) 1 patch TD DAILY [facility] Last Admin: 06/07/17 10:45 Dose: 1 patch Ondansetron HCl (Zofran Inj) 4 mg IVP Q8 PRN PRN Reason: Nausea/Vomiting Pantoprazole Sodium (Protonix Ec Tab) 40 mg PO DAILY [facility] Last Admin: 06/07/17 09:21 Dose: 40 mg Potassium Chloride (K-Dur 20 Meq Er Tab) 20 meq PO DAILY [facility] Last Admin: 06/07/17 09:20 Dose: 20 meq Fluticasone/Salmeterol (Advair Diskus 100/50) 1 puff IH Q12 [facility] Last Admin: 06/07/17 21:29 Dose: 1 puff Thiamine HCl (Vitamin B1 Tab) 100 mg PO DAILY [facility] Last Admin: 06/07/17 09:21 Dose: 100 mg Results - Vital Signs Recent Vital Signs: Last Vital Signs Temp 97.7 F 06/08/17 05:00 Pulse 108 H 06/08/17 05:00 Resp 19 06/08/17 05:00 BP 114/75 06/08/17 05:00 Pulse Ox 96 06/08/17 05:00 - Labs Result Diagrams: 06/06/17 06:00 06/08/17 05:40 Labs: Laboratory Results - last 24 hr 06/07/17 06/07/17 06/07/17 12:20 14:30 14:30 D-Dimer, Quantitative 264 H Sodium Potassium Chloride Carbon Dioxide Anion Gap BUN Creatinine Est GFR ( Amer) Est GFR (Non-Af Amer) Random Glucose Calcium Total Bilirubin GGT 297 H AST ALT Alkaline Phosphatase Troponin I < 0.0120 Total Protein Albumin Globulin Albumin/Globulin Ratio Triglycerides Cholesterol LDL Cholesterol Direct HDL Cholesterol 06/07/17 06/08/17 23:06 05:40 D-Dimer, Quantitative Sodium 135 Potassium 3.4 L Chloride 100 Carbon Dioxide 22 Anion Gap 16 BUN 9 Creatinine 0.8 Est GFR ( Amer) > 60 Est GFR (Non-Af Amer) > 60 Random Glucose 307 H Calcium 9.9 Total Bilirubin 0.5 GGT AST 115 H ALT 136 H Alkaline Phosphatase 55 Troponin I < 0.0120 Total Protein 7.0 Albumin 4.1 Globulin 2.9 Albumin/Globulin Ratio 1.4 Triglycerides 46 Cholesterol 126 LDL Cholesterol Direct 50 HDL Cholesterol 60
--- NOTE | 2017-06-08 08:31 | CARD ---
APPROVED REPORT EKG Measurement Heart [id number] <Conclusion> Normal sinus rhythm Normal ECG
[2017-06-08] MEDS ORDERED: methylPREDNISolone 60 MG in Sodium Chloride 0.9% 50 ML IV SCH (09:00)
[2017-06-08] MEDS: Fluticasone-Salmeterol 100-50mcg Diskus IH SCH (09:10)
[2017-06-08] MEDS: Potassium Chloride 20 mEq ER Tab PO SCH (09:11)
[2017-06-08] MEDS: Pantoprazole 40 mg EC Tab PO SCH (09:12)
--- NOTE | 2017-06-08 10:09 | CARD ---
APPROVED REPORT EKG Measurement Heart [id number] <Conclusion> Sinus tachycardia Otherwise normal ECG
[2017-06-08 12:25] VITALS: O2SAT 95
[2017-06-08] MEDS ORDERED: Azithromycin 500 MG in Sodium Chloride 0.9% 250 ML IVPB SCH (13:00)
[2017-06-08] MEDS ORDERED: Potassium Chloride 20 mEq ER Tab PO SCH (13:00)
--- NOTE | 2017-06-08 13:42 | PQF GENQUE ---
Dr. Cook, 2 (two) queries as follows: (1) COPD Exacerbation versus COPD Stable? (2) If in exacerbation: was COPD exacerbation :POA (Present on Admission) versus not POA? OR: Other explanation of clinical finding ER note; presents to the emergency department for an evaluation of left- sided chest pain associated with shakiness, lightheadedness, shortness of breath , nausea, vomiting, runny nose , loss of appetite and generalized weakness while at a [place] festival prior to arrival. H and P; Constitutional:Respiratory: absent: Wheezing, Chest Congestion, Excessive Mucous Production PE: Respiratory Exam: Clear to Auscultation Bilateral, NORMAL BREATHING PATTERN Impression.: Diagnoses include: COPD (chronic obstructive pulmonary disease) Status: Acute Advair Diskus 1 puff IH Q12 06/07 stat neb ->TID 06/07: methylprednisolone IV OD This form is a permanent part of the medical record Clarification of your documentation is requested to better reflect the severity of illness and intensity of treatment of your patient. Indicators present [] Specify: [] [] Specify: [] [] Specify: [] [] Specify: [] Location in the medical record that reflects the above clinical findings: [] Treatment Provided: [] PHYSICIAN'S RESPONSE Based on your medical judgment of the clinical indicators outlined above please clarify the following: [] Practitioner response [] If unable to determine, please check the box, sign and date. Present On Admission (POA) Indicator: [] Present at the time of admission [] Not present at the time of admission [] Clinically Undetermined In responding to this query, please exercise your independent professional judgment. The fact that a question is asked does not imply that any particular answer is desired or expected. Thank you for your clarification on this documentation. If you have any questions please call. * Thank you, Anita Mendes RN BSN ext. #[phone] ([facility] ext. ) JULIUSD
--- NOTE | 2017-06-08 13:48 | PQF GENQUE ---
Dr. Cook, Etiology of Chest ? if known after the work up is completed OR: Unable to determine CXR:Impression:No active disease. No significant interval change compared to the prior examination(s This form is a permanent part of the medical record Clarification of your documentation is requested to better reflect the severity of illness and intensity of treatment of your patient. Indicators present [] Specify: [] [] Specify: [] [] Specify: [] [] Specify: [] Location in the medical record that reflects the above clinical findings: [] Treatment Provided: [] PHYSICIAN'S RESPONSE Based on your medical judgment of the clinical indicators outlined above please clarify the following: [] Practitioner response [] If unable to determine, please check the box, sign and date. Present On Admission (POA) Indicator: [] Present at the time of admission [] Not present at the time of admission [] Clinically Undetermined In responding to this query, please exercise your independent professional judgment. The fact that a question is asked does not imply that any particular answer is desired or expected. Thank you for your clarification on this documentation. If you have any questions please call. * Thank you, Anita Mendes RN BSN ext. #[phone]: [facility] DESOUZA
[2017-06-08 16:10] VITALS: BP 106/77; PULSE 104; RESP 20; TEMP 97.9
--- NOTE | 2017-06-08 21:37 | CP.PCM.DIS ---
Provider - Provider Date of Admission: 06/04/17 23:11 Attending physician: Monika Cook MD Time Spent in preparation of Discharge (in minutes): 30 Diagnosis - Discharge Diagnosis (1) Chest pain Status: Resolved Comment: likley noncardiac. cardiology cleared the pt. consider stress test as OP (2) Alcohol withdrawal Status: Resolved (3) Hepatitis Status: Chronic Comment: d\c librium. moniotr as OP (4) Hypokalemia Status: Resolved (5) Essential (primary) hypertension Status: Chronic (6) COPD exacerbation Status: Acute Comment: given meds. nebuliser discuss about smoking quitting. z-apck\medrol dose denys Hospital Course - Lab Results Lab Results: Micro Results 06/06/17 13:30 Stool Stool Culture - Final NO SALMONELLA, SHIGELLA OR CAMPYLOBACTER ISOLATED. 06/06/17 13:30 Stool Ova and Parasite Concentrate Exam - Final Most Recent Lab Values WBC 6.6 K/uL (4.8-10.8) 06/06/17 06:00 RBC 4.10 Mil/uL (4.40-5.90) L 06/06/17 06:00 Hgb 14.3 g/dL (12.0-18.0) 06/06/17 06:00 Hct 42.2 % (35.0-51.0) 06/06/17 06:00 MCV 102.8 fl (80.0-94.0) H 06/06/17 06:00 MCH 34.9 pg (27.0-31.0) H 06/06/17 06:00 MCHC 34.0 g/dL (33.0-37.0) 06/06/17 06:00 RDW 13.6 % (11.5-14.5) 06/06/17 06:00 Plt Count 93 K/uL (130-400) L 06/06/17 06:00 MPV 9.7 fl (7.2-11.7) 06/06/17 06:00 Neut % (Auto) 57.4 % (50.0-75.0) 06/06/17 06:00 Lymph % (Auto) 27.1 % (20.0-40.0) 06/06/17 06:00 [place] % (Auto) 7.8 % (0.0-10.0) 06/06/17 06:00 Eos % (Auto) 6.4 % (0.0-4.0) H 06/06/17 06:00 Baso % (Auto) 1.3 % (0.0-2.0) 06/06/17 06:00 Neut # 3.8 K/uL (1.8-7.0) 06/06/17 06:00 Lymph # 1.8 K/uL (1.0-4.3) 06/06/17 06:00 [place] # 0.5 K/uL (0.0-0.8) 06/06/17 06:00 Eos # 0.4 K/uL (0.0-0.7) 06/06/17 06:00 Baso # 0.1 K/uL (0.0-0.2) 06/06/17 06:00 PT 11.7 Seconds (9.8-13.1) 06/04/17 19:14 INR 1.1 (0.9-1.2) 06/04/17 19:14 APTT 28.8 Seconds (25.6-37.1) 06/04/17 19:14 D-Dimer, Quantitative 264 ng/mlDDU (0-230) H 06/07/17 14:30 pO2 61 mm/Hg (30-55) H 06/04/17 22:42 VBG pH 7.42 (7.32-7.43) 06/04/17 22:42 VBG pCO2 40 mmHg (40-60) 06/04/17 22:42 VBG HCO3 25.7 mmol/L 06/04/17 22:42 VBG Total CO2 27.1 mmol/L (22-28) 06/04/17 22:42 VBG O2 Sat (Calc) 95.8 % (40-65) H 06/04/17 22:42 VBG Base Excess 1.3 mmol/L (0.0-2.0) 06/04/17 22:42 VBG Potassium 3.7 mmol/L (3.6-5.2) 06/04/17 22:42 Sodium 132.0 mmol/L (132-148) 06/04/17 22:42 Chloride 100.0 mmol/L (98-107) 06/04/17 22:42 Glucose 130 mg/dL (75-110) H 06/04/17 22:42 Lactate 1.2 mmol/L (0.7-2.1) 06/04/17 22:42 FiO2 21.0 % 06/04/17 22:42 Blood Gas Comments Lactate 2.8 06/04/17 19:39 Crit Value Called To alfonso Capellan 06/04/17 19:39 Crit Value Called By 203 06/04/17 19:39 Crit Value Read Back N 06/04/17 19:39 Blood Gas Notified Time 194506/04/17 19:39 Sodium 135 mmol/l (132-148) 06/08/17 05:40 Potassium 3.4 MMOL/L (3.6-5.0) L 06/08/17 05:40 Chloride 100 mmol/L (98-107) 06/08/17 05:40 Carbon Dioxide 22 mmol/L (22-30) 06/08/17 05:40 Anion Gap 16 (10-20) 06/08/17 05:40 BUN 9 mg/dl (9-20) 06/08/17 05:40 Creatinine 0.8 mg/dL (0.8-1.5) 06/08/17 05:40 Est GFR ( Amer) > 60 06/08/17 05:40 Est GFR (Non-Af Amer) > 60 06/08/17 05:40 POC Glucose (mg/dL) 87 mg/dL (65-110) 06/04/17 19:23 Random Glucose 307 mg/dL (75-110) H 06/08/17 05:40 Hemoglobin A1c 5.9 % (4.2-6.5) 06/05/17 06:30 Calcium 9.9 mg/dL (8.4-10.2) 06/08/17 05:40 Total Bilirubin 0.5 mg/dl (0.2-1.3) 06/08/17 05:40 GGT 297 U/L (8-78) H 06/07/17 12:20 AST 115 U/L (17-59) H 06/08/17 05:40 ALT 136 U/L (21-72) H 06/08/17 05:40 Alkaline Phosphatase 55 U/L (38-126) 06/08/17 05:40 Troponin I < 0.0120 ng/mL (0.00-0.120) 06/07/17 23:06 NT-Pro-B Natriuret Pep 83.2 pg/ml (0-900) 06/04/17 19:14 Total Protein 7.0 G/DL (6.3-8.2) 06/08/17 05:40 Albumin 4.1 g/dL (3.5-5.0) 06/08/17 05:40 Globulin 2.9 gm/dL (2.2-3.9) 06/08/17 05:40 Albumin/Globulin Ratio 1.4 (1.0-2.1) 06/08/17 05:40 Triglycerides 46 mg/DL (0-149) 06/08/17 05:40 Cholesterol 126 mg/dL (0-199) 06/08/17 05:40 LDL Cholesterol Direct 50 mg/dL (0-129) 06/08/17 05:40 HDL Cholesterol 60 MG/DL (30-70) 06/08/17 05:40 Lipase 208 U/L (23-300) 06/04/17 19:14 Vitamin B12 614 pg/mL (239-931) 06/06/17 06:00 TSH 3rd Generation 3.26 mIU/ML (0.46-4.68) 06/05/17 06:30 Venous Blood Potassium 3.7 mmol/L (3.6-5.2) 06/04/17 22:42 Urine Opiates Screen Positive (NEGATIVE) H 06/04/17 22:20 Urine Methadone Screen Negative (NEGATIVE) 06/04/17 22:20 Ur Barbiturates Screen Negative (NEGATIVE) 06/04/17 22:20 Ur Phencyclidine Scrn Negative (NEGATIVE) 06/04/17 22:20 Ur Amphetamines Screen Negative (NEGATIVE) 06/04/17 22:20 U Benzodiazepines Scrn Negative (NEGATIVE) 06/04/17 22:20 U Oth Cocaine Metabols Negative (NEGATIVE) 06/04/17 22:20 U Cannabinoids Screen Negative (NEGATIVE) 06/04/17 22:20 Alcohol, Quantitative < 10 mg/dl (0-10) 06/04/17 19:14 C. difficile Ag & Toxin Negative (NEGATIVE) 06/06/17 13:30 Hepatitis A IgM Ab Negative (NEGATIVE) 06/06/17 06:00 Hep Bs Antigen Negative (NEGATIVE) 06/06/17 09:02 Hep B Core IgM Ab Negative (NEGATIVE) 06/06/17 06:00 Hepatitis C Antibody Negative (NEGATIVE) 06/06/17 09:02 Discharge Exam - Head Exam Head Exam: ATRAUMATIC, NORMAL INSPECTION, NORMOCEPHALIC - Additional Findings Additional findings: Additional Findings Additional findings: - Constitutional Appears: No Acute Distress - Head Exam Head Exam: ATRAUMATIC, NORMAL INSPECTION - Eye Exam Eye Exam: EOMI, Normal appearance, PERRL - ENT Exam ENT Exam: Normal Exam - Neck Exam Neck exam: Positive for: Normal Inspection. Negative for: Thyromegaly - Respiratory Exam Respiratory Exam: Clear to Auscultation Bilateral, NORMAL BREATHING PATTERN - Cardiovascular Exam Cardiovascular Exam: REGULAR RHYTHM, +S1, +S2, Systolic Murmur - GI/Abdominal Exam GI & Abdominal Exam: Normal Bowel Sounds, Soft. absent: Distended, Organomegaly , TenderneSS - Extremities Exam Extremities exam: Positive for: full ROM, pedal pulses present, no hand tremmors - Back Exam Back exam: NORMAL INSPECTION. absent: paraspinal tenderness - Neurological Exam Neurological exam: Alert, CN II-XII Intact, Normal Gait, Oriented x3 - Psychiatric Exam Psychiatric exam: Anxious - Skin Skin Exam: Intact, Normal Color Discharge Plan - Discharge Medications Prescriptions: Fluticasone/Salmeterol 100/50 [Advair Diskus 100/50] 1 puff IH Q12 #1 puff Albuterol/Ipratropium [Duoneb 3 mg/0.5 mg (3 ml) UD] 3 ml INH RTID #60 Folic Acid 1 mg PO DAILY #30 tab Metoprolol Tartrate [Lopressor] 25 mg PO BID #60 tab Methylprednisolone [Medrol Dose Pack (21 tabs)] 4 mg PO DAILY #21 mg Gabapentin [Neurontin] 800 mg PO TID #60 cap Pantoprazole [Protonix EC Tab] 40 mg PO DAILY #30 ect Thiamine [Vitamin B1 Tab] 100 mg PO DAILY #30 tab Azithromycin [Zithromax] 500 mg PO DAILY #5 tablet - Follow Up Plan Condition: FAIR Disposition: HOME/ ROUTINE Instructions: Chest Pain (DC) Additional Instructions: patient cleared for discharge to home today by and Char Rx for all meds sent to [facility] pharmacy Rx for neb machine and outpatient tredmill stress test provided Referrals: Monika Cook MD [Medical Doctor] -
--- NOTE | 2017-06-09 00:07 | CON ---
REASON FOR CONSULTATION: Chest pain. 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 He has a history of chronic back pain, COPD, and is still a smoker. The patient also has a history of gastric ulcer. He presented because of chest discomfort, tremulousness and lightheadedness as well as shortness of breath. The patient is unaware of any history of heart attack in the past. SOCIAL HISTORY: The patient stated that he continues smoking to few cigarettes a day and he drinks occasionally. MEDICATIONS: Advair 1 puff twice a day, aspirin 81 mg once a day, Ativan 2 mg intravenously q. 8 hours, Zithromax 500 mg daily, Elavil 25 mg at bedtime, folic acid 1 mg once a day, K-Dur 20 mEq once a day, Solu-Medrol mg intravenously daily, nicotine patch and thiamine 100 mg once a day. REVIEW OF SYSTEMS: No fever or chills. No productive cough. PHYSICAL EXAMINATION: GENERAL: The patient is a middle aged male, who does not appear to be in any distress. VITAL SIGNS: Blood pressure 123/75, heart rate 91, temperature 97.6 and respirations 18. HEENT: Normocephalic. CHEST: Minimal rhonchi. HEART: S1 and S2 regular. ABDOMEN: Soft. EXTREMITIES: No edema or calf tenderness. LABORATORY DATA: Hemoglobin, hematocrit and white count are within normal limit and platelet count is 93,000. Urine drug screen is positive for opiates. SMA-7 today is within normal limits except for glucose of 307 and potassium is 3.4. AST and ALT are elevated to 115 and 136. Three sets of troponins are negative. Hemoglobin A1c is 5.9. TSH level is within normal limits. EKG revealed normal sinus rhythm at a rate of 65. Echocardiogram revealed normal left ventricular systolic function and segmental wall motion, mildly enlarged aortic root. Chest x-ray revealed normal cardiac silhouette. No mediastinal enlargement, consider right lower lobe infiltrate. Abdomen and pelvis CT scan: Extensive colonic diverticulosis, recommend correlation versus colonoscopy if clinically indicated. ASSESSMENT: 1. Atypical chest pain, myocardial infarction is ruled out. 2. Chronic obstructive lung disease. 3. Mild hypokalemia. 4. History of depression. 5. Extensive diverticulosis. 6. Thrombocytopenia. RECOMMENDATIONS: Continue current bronchodilators. Continue aspirin, Elavil, folic acid, K-Dur replacement, Lopressor, and thiamine. Consider an exercise stress test as an outpatient when the patient is medically cleared. Consider further evaluation of the aortic root with chest CT scan if medically indicated; however, the clinical picture does not suggest either aortic aneurysm or aortic dissection. Angel Begum MD
== END 2017-06-08 18:53 | disposition home or self-care (01) | DRG 750 ==
LOC: H.ER 18:21 → H.ERHOLD 23:11 → H.TEL 06-05 01:03
PROVIDERS: ADMIT Internal Medicine; ATTEND Internal Medicine
DX: F10.239 Alcohol dependence with withdrawal, unspecified (principal); D69.6 Thrombocytopenia, unspecified; K73.9 Chronic hepatitis, unspecified; E87.6 Hypokalemia; J44.1 Chronic obstructive pulmonary disease with (acute) exacerbation; R07.89 Other chest pain; E78.00 Pure hypercholesterolemia, unspecified; F17.210 Nicotine dependence, cigarettes, uncomplicated; F32.9 Major depressive disorder, single episode, unspecified; I10 Essential (primary) hypertension; E78.5 Hyperlipidemia, unspecified; G89.29 Other chronic pain; Z86.73 Personal history of transient ischemic attack (TIA), and cerebral infarction without residual deficits; R19.7 Diarrhea, unspecified; K57.90 Diverticulosis of intestine, part unspecified, without perforation or abscess without bleeding; Z88.5 Allergy status to narcotic agent

== ENCOUNTER 2017-07-12 21:38 | Emergency (ER) | payer OTHER ==
[2017-07-12 21:38] VITALS: BMI 22.4
[2017-07-12 21:43] VITALS: TEMP 97.9; O2SAT 98
--- NOTE | 2017-07-12 22:47 | ED PDOC ---
HPI: SOB/CHF/COPD Time Seen by Provider: 07/12/17 21:55 Chief Complaint (Nursing): Shortness Of Breath Chief Complaint (Provider): Shortness Of Breath History Per: Patient History/Exam Limitations: no limitations Onset/Duration Of Symptoms: Days (x1) Current Symptoms Are (Timing): Still Present Additional Complaint(s): Bipin Neri is a 57 year old male with previous medical history of hypertension , COPD and emphysema, who presents to the emergency department with a complaint of shortness of breath with exertion associated with high blood pressure worsening today. Denied chest pain, loss of consciousness and cough. Patient stated that he was hospitalized for similar symptoms a month ago and compliant with medications. PMD: Monika Cook MD Past Medical History Reviewed: Historical Data, Nursing Documentation, Vital Signs Vital Signs: Last Vital Signs Temp 97.9 F 07/12/17 21:40 Pulse 76 07/13/17 01:58 Resp 18 07/13/17 01:58 BP 141/87 07/13/17 01:58 Pulse Ox 98 07/13/17 03:16 - Medical History PMH: Back Problems, COPD, Depression, Emphysema, Fractures (L ankle), Hiatal Hernia, HTN, Hypercholesterolemia, Hyperlipidemia, Pneumonia (10 yrs ago), Chronic Pain Denies: Diabetes, Chronic Kidney Disease - Surgical History Surgical History: Denies: No Surg Hx Other surgeries: left ankle - Family History Family History: States: Unknown Family Hx - Social History Current smoker - smoking cessation education provided: No Ex-Smoker (has not smoked in the last 12 months): Yes Alcohol: None Drugs: Denies - Immunization History Hx Tetanus Toxoid Vaccination: Yes Hx Influenza Vaccination: Yes Hx Pneumococcal Vaccination: Yes - Home Medications Home Medications: Ambulatory Orders Medication Instructions Recorded Amitriptyline [Elavil] 25 mg PO HS 10/25/16 Aspirin [Sargent Aspirin] 81 mg PO DAILY 10/25/16 Cyclobenzaprine [Flexeril] 5 mg PO TID PRN 10/25/16 Gabapentin [Neurontin] 800 mg PO TID 10/25/16 Fluticasone/Vilanterol [Breo 1 puff INH DAILY 06/04/17 Ellipta 100-25 Mcg INH] Albuterol/Ipratropium [Duoneb 3 3 ml INH RTID #60 06/08/17 mg/0.5 mg (3 ml) UD] Azithromycin [Zithromax] 500 mg PO DAILY #5 tablet 06/08/17 Fluticasone/Salmeterol 100/50 1 puff IH Q12 #1 puff 06/08/17 [Advair Diskus 100/50] Folic Acid 1 mg PO DAILY #30 tab 06/08/17 Gabapentin [Neurontin] 800 mg PO TID #60 cap 06/08/17 Methylprednisolone [Medrol Dose 4 mg PO DAILY #21 mg 06/08/17 Pack (21 tabs)] Metoprolol Tartrate [Lopressor] 25 mg PO BID #60 tab 06/08/17 Pantoprazole [Protonix EC Tab] 40 mg PO DAILY #30 ect 06/08/17 Thiamine [Vitamin B1 Tab] 100 mg PO DAILY #30 tab 06/08/17 - Allergies Allergies/Adverse Reactions: Allergies Allergy/AdvReac Type Severity Reaction Status Date / Time oxycodone HCl [From Percocet] Allergy SHORTNESS Verified 07/12/17 21:40 OF BREATH Review of Systems ROS Statement: Except As Marked, All Systems Reviewed And Found Negative Constitutional: Positive for: Chills. Negative for: Fever Cardiovascular: Negative for: Chest Pain Respiratory: Positive for: SOB with Exertion. Negative for: Cough Neurological: Negative for: Other (loss of conciousness) Physical Exam - Reviewed Nursing Documentation Reviewed: Yes Vital Signs Reviewed: Yes - Physical Exam Appears: Positive for: Well, Non-toxic, No Acute Distress Head Exam: Positive for: ATRAUMATIC, NORMAL INSPECTION, NORMOCEPHALIC Skin: Positive for: Normal Color Eye Exam: Positive for: Normal appearance, EOMI, PERRL. Negative for: Nystagmus ENT: Positive for: Normal ENT Inspection Neck: Positive for: Normal, Painless ROM, Supple. Negative for: Decreased ROM Cardiovascular/Chest: Positive for: Chest Non Tender Respiratory: Positive for: Normal Breath Sounds, Accessory Muscle Use. Negative for: Decreased Breath Sounds, Respiratory Distress Gastrointestinal/Abdominal: Positive for: Normal Exam, Bowel Sounds, Soft. Negative for: Tenderness Back: Positive for: Normal Inspection. Negative for: L CVA Tenderness, R CVA Tenderness Extremity: Positive for: Normal ROM. Negative for: Tenderness, Pedal Edema, Calf Tenderness, Deformity Neurologic/Psych: Positive for: Alert, Oriented - Laboratory Results Result Diagrams: 07/12/17 23:15 07/12/17 23:15 - ECG O2 Sat by Pulse Oximetry: 98 (RA) Pulse Ox Interpretation: Normal Medical Decision Making Medical Decision Making: Initial Impression: Shortness of breath Initial Plan: * EKG * BNP * BMP * Troponin I * CBC * D Dimer * CXR Time: 0 --EKG: NSR at 78 BMP. Nomal QRS. No ST changes. 0308 CT ANGIO FINDINGS: Pulmonary arteries: No pulmonary embolism. Aorta: No thoracic aortic aneurysm. Lungs: No mass. No consolidation. Pleural spaces: No significant effusion. No pneumothorax. Heart: No cardiomegaly. No significant pericardial effusion. No evidence of right heart dysfunction. Bones: No acute fracture. Lymph nodes: No pathologically enlarged lymph nodes. IMPRESSION: No pulmonary embolism. The lungs are clear. Scribe Attestation: Documented by Namita Sinha and Khadijah Huizar, acting as a scribe for Taylor Sumner MD. Provider Scribe Attestation: All medical record entries made by the Scribe were at my direction and personally dictated by me. I have reviewed the chart and agree that the record accurately reflects my personal performance of the history, physical exam, medical decision making, and the department course for this patient. I have also personally directed, reviewed, and agree with the discharge instructions and disposition. Disposition - Clinical Impression Clinical Impression: COPD (chronic obstructive pulmonary disease), Dyspnea - Patient ED Disposition Is Patient to be Admitted: No Doctor Will See Patient In The: Office Counseled Patient/Family Regarding: Studies Performed, Diagnosis, Need For Followup - Disposition Referrals: Monika Cook MD [Family Provider] - Disposition: Routine/Home Disposition Time: 03:15 Condition: GOOD Additional Instructions: Take your medications as instructed. Follow up with your PCP in 2-3 days. Instructions: Emphysema (ED), Dyspnea (ED)
[2017-07-12 23:28] LABS: BASO % 0.4 % (0.0-2.0); EOS # 0.6 K/uL (0.0-0.7); EOS % 6.1 % (0.0-4.0); HEMATOCRIT 44.3 % (35.0-51.0); LYMPH # 3.3 K/uL (1.0-4.3); LYMPH % 31.2 % (20.0-40.0); MEAN CORPUSCULAR HEMOGLOBIN 35.5 pg (27.0-31.0); MEAN CORPUSCULAR HGB CONC 35.2 g/dL (33.0-37.0); MEAN PLATELET VOLUME 9.1 fl (7.2-11.7); MONO % 9.4 % (0.0-10.0); NEUT # 5.6 K/uL (1.8-7.0); NEUT % 52.9 % (50.0-75.0); NRBC % 0.2 % (0.0-0.0); RED CELL DISTRIBUTION WIDTH 13.5 % (11.5-14.5); WHITE BLOOD COUNT 10.5 K/uL (4.8-10.8)
[2017-07-12 23:29] LABS: BLOOD UREA NITROGEN 17 mg/dl (9-20); CALCIUM 9.6 mg/dL (8.4-10.2); CARBON DIOXIDE 28 mmol/L (22-30); CHLORIDE 102 mmol/L (98-107); GFR AFRICAN-AMERICAN > 60; GLUCOSE,RANDOM 103 mg/dL (75-110); POTASSIUM 4.6 MMOL/L (3.6-5.0); SODIUM 141 mmol/l (132-148)
[2017-07-13 01:59] VITALS: BP 141/87; PULSE 76; RESP 18
[2017-07-13] MEDS ORDERED: Iodixanol 320 MG/ML 100 ML BOTTLE IV ONE (02:06)
[2017-07-13] MEDS ORDERED: Sodium Chloride 0.9% 50 ML IV ONE (02:06)
--- NOTE | 2017-07-13 03:09 | CT ---
EXAM: CT Angiography Chest With Intravenous Contrast CLINICAL HISTORY: 57 years old, male; Pain; Chest pain; Radiating TECHNIQUE: Axial computed tomographic angiography images of the chest with intravenous contrast using pulmonary embolism protocol. All CT scans at this facility use one or more dose reduction techniques, viz.: automated exposure control; ma/kV adjustment per patient size (including targeted exams where dose is matched to indication; i.e. head); or iterative reconstruction technique. MIP reconstructed images were created and reviewed. Coronal and sagittal reformatted images were created and reviewed. CONTRAST: 99 mL of [id number] administered intravenously. COMPARISON: No relevant prior studies available. FINDINGS: Pulmonary arteries: No pulmonary embolism. Aorta: No thoracic aortic aneurysm. Lungs: No mass. No consolidation. Pleural spaces: No significant effusion. No pneumothorax. Heart: No cardiomegaly. No significant pericardial effusion. No evidence of right heart dysfunction. Bones: No acute fracture. Lymph nodes: No pathologically enlarged lymph nodes. IMPRESSION: No pulmonary embolism. The lungs are clear.
--- NOTE | 2017-07-13 07:31 | CARD ---
APPROVED REPORT EKG Measurement Heart [id number] <Conclusion> Normal sinus rhythm Normal ECG
--- NOTE | 2017-07-13 10:32 | RAD ---
HISTORY: COMPARISON: 06/04/2017. TECHNIQUE: Chest PA and lateral FINDINGS: LINES AND TUBES: None. LUNG AND PLEURA: The lungs are hyperinflated and there is peribronchial thickening with chronic changes in both lungs. No focal consolidation. HEART AND MEDIASTINUM: The heart is not enlarged. The hilar and mediastinal contours are within normal limits. SKELETAL STRUCTURES: The bony structures are within normal limits for the patient's age. VISUALIZED UPPER ABDOMEN: Normal. OTHER FINDINGS: None. IMPRESSION: No active pulmonary disease.
== END 2017-07-13 03:35 | disposition home or self-care (01) ==
LOC: H.ER 21:38
DX: J44.9 Chronic obstructive pulmonary disease, unspecified (principal); R06.00 Dyspnea, unspecified; E78.00 Pure hypercholesterolemia, unspecified; F32.9 Major depressive disorder, single episode, unspecified; G89.29 Other chronic pain; I10 Essential (primary) hypertension; Z79.82 Long term (current) use of aspirin
CPT/HCPCS: 71020; 71275; 80048; 83880; 84484; 85025; 93005; 99283; Q9967